=== PATIENT | female | born 1995 | race Caucasian/White ===

== ENCOUNTER 2021-05-05 07:17 | Emergency (ER) | payer BC ==
--- NOTE | 2021-05-05 07:49 | EDM.PDOC ---
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 The patient states that approximately 20 minutes prior to arrival the patient had some vaginal bleeding when she went to the restroom. She states that the toilet was full of blood which she describes as Lanre-Aid color. When she wiped she did have some clots and on the other side there was some bright red blood. She does not know how much she has bled since that time. She states that she occasionally has some pelvic pain but denies any pelvic pain this morning. She denies any dysuria or hematuria. She states that this is her first . She denies any prior history of miscarriage. She denies any fever, chills, chest pain, shortness of breath, headache, blurry vision, double vision or any other symptoms. REVIEW OF SYSTEMS: Constitutional: Denies fever, chills. Eyes: Denies eye pain Ears, Nose, Mouth, & Throat: Denies earache Cardiovascular: Denies chest pain Respiratory: Denies shortness of breath Gastrointestinal: Denies Nausea, vomiting, diarrhea, hematochezia. Genitourinary: Positive for vaginal bleeding. Denies hematuria, dysuria, pelvic pain Skin:Denies a rash MSK: Denies joint pain Neurological: Denies blurred vision, headache Psychiatric: Denies depression PAST MEDICAL HISTORY: As per history of present illness and as reviewed below otherwise noncontributory. SURGICAL HISTORY: As per history of present illness and as reviewed below otherwise noncontributory. LMP: 11 weeks ago SOCIAL HISTORY: As per history of present illness and as reviewed below otherwise noncontributory. FAMILY HISTORY: As per history of present illness and as reviewed below otherwise noncontributory. EXAMINATION OF ORGAN SYSTEMS/BODY AREAS: Constitutional: Blood pressure is 152/100, heart rate 112, respiratory rate 18 with an oxygen saturation of 99% on room air. Temperature 36.6 General: Well-appearing woman who is in no acute distress Psychiatric: Appropriate mood and affect. Eyes: No scleral icterus or conjunctival erythema ENMT: Moist mucous membranes. No pharyngeal erythema Cardiovascular: Tachycardic but regular no gallops, murmurs, or rubs. Bilateral upper extremity pulses symmetric and intact. No peripheral edema. No JVD. Respiratory: Lungs clear to auscultation bilaterally. No wheezes, rales, or rhonchi. Gastrointestinal: Soft, non-tender, non-distended. Normoactive bowel sounds Genitourinary: No suprapubic tenderness Musculoskeletal: Normal range of motion. Skin: No lesions or abrasions. Neurological: Alert, GCS 15 MEDICAL DECISION MAKING AND COURSE IN THE ED WITH INTERPRETATION/REVIEW OF DIAGNOSTIC STUDIES: This is a 26-year-old woman G1, P0 at 11 weeks gestation who comes to the emergency department with vaginal bleeding who is mildly tachycardic and hypertensive. At this time the patient does appear to be mildly anxious we will reevaluate blood pressure and heart rate after patient is in the emergency department being observed. I did perform a bedside ultrasound at this time. Bedside transabdominal OB ultrasound Bedside transabdominal OB ultrasound does not reveal any evidence of pelvic free fluid. There does appear to be a single live intrauterine gestation with heart rate present. I did discuss with patient at this time I would like to obtain laboratory analysis including CBC, quantitative hCG, type and screen and urinalysis. They were amenable to this plan. Laboratory: CBC is unremarkable. Quantitative hCG was 100,515. Urinalysis revealed hematuria with trace leukocyte esterase with 2+ urinary bacteria. This indicates asymptomatic bacteriuria. Blood type is a negative Given that the patient's blood type is a negative we did provide the patient with RhoGam. She was amenable to this plan. On reevaluation patient's blood pressure had significantly improved. At this time I did with RN outer diameter grinder tool present to perform a bimanual examination. The cervical os was closed and there was no blood on my gloved. I did discuss with her at this time strict return precautions and follow-up closely with her disk grinder. She was amenable discharge at this time and had no further questions. DISPOSITION: The patient was discharged home in stable condition. The patient will follow up with disk grinder in 3 to 5 days CONDITION: Fair PROCEDURES: Bedside transabdominal OB ultrasound FINAL IMPRESSION(S)/DIAGNOSES: 1. Acute threatened Elias Clinton M.D. 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 History: Reports: Musculoskeletal History: Reports: None Neurological History: Reports: None Psychiatric History: Reports: None Endocrine/Metabolic History: Reports: None Hematologic History: Reports: None Oncologic (Cancer) History: Reports: None Dermatologic History: Reports: None - Infectious Disease History Infectious Disease History: Reports: Chicken Pox - Past Surgical History Female Surgical History: Reports: None Endocrine Surgical History: Reports: None Neurological Surgical History: Reports: None Musculoskeletal Surgical History: Reports: None Social & Family History - Family History Family Medical History: No Pertinent Family History - Caffeine Use Caffeine Use: Reports: None - Recreational Drug Use Recreational Drug Use: No ED ROS GENERAL - Review of Systems Review Of Systems: See Below ED EXAM, GENERAL - Physical Exam Exam: See Below Course - Vital Signs Last Recorded V/S: Last Vital Signs Temp 36.8 C 05/05/21 10:35 Pulse 92 05/05/21 10:35 Resp 16 05/05/21 10:35 BP 118/82 05/05/21 10:35 Pulse Ox 92 L 05/05/21 10:35 - Orders/Labs/Meds Labs: Laboratory Tests 05/05/21 05/05/21 05/05/21 Range/Units 07:40 07:43 07:43 WBC 8.58 (4.0-11.0) K/uL RBC 5.09 (4.30-5.90) M/uL Hgb 13.7 (12.0-16.0) g/dL Hct 41.4 (36.0-46.0) % MCV 81.3 (80.0-98.0) fL MCH 26.9 L (27.0-32.0) pg MCHC 33.1 (31.0-37.0) g/dL RDW Std Deviation 41.1 (28.0-62.0) fl RDW Coeff of Sobia 14 (11.0-15.0) % Plt Count 277 (150-400) K/uL MPV 10.00 (7.40-12.00) fL Neut % (Auto) 69.9 (48.0-80.0) % Lymph % (Auto) 21.2 (16.0-40.0) % Wilkes % (Auto) 6.4 (0.0-15.0) % Eos % (Auto) 2.3 (0.0-7.0) % Baso % (Auto) 0.2 (0.0-1.5) % Neut # (Auto) 6.0 H (1.4-5.7) K/uL Lymph # (Auto) 1.8 (0.6-2.4) K/uL Wilkes # (Auto) 0.6 (0.0-0.8) K/uL Eos # (Auto) 0.2 (0.0-0.7) K/uL Baso # (Auto) 0.0 (0.0-0.1) K/uL Nucleated RBC % 0.0 /100WBC Nucleated RBCs # 0 K/uL HCG, Quant 040246.0 mIU/mL Urine Color Urine Appearance Urine pH (5.0-8.0) Ur Specific [place] (1.001-1.035) Urine Protein (NEGATIVE) mg/dL Urine Glucose (UA) (NEGATIVE) mg/dL Urine Ketones (NEGATIVE) mg/dL Urine Occult Blood (NEGATIVE) Urine Nitrite (NEGATIVE) Urine Bilirubin (NEGATIVE) Urine Urobilinogen (<2.0) EU/dL Ur Leukocyte Esterase (NEGATIVE) Urine RBC (0-2/HPF) Urine WBC (0-5/HPF) Ur Epithelial Cells (NONE-FEW) Urine Bacteria (NEGATIVE) Blood Type A NEGATIVE Antibody Screen NEGATIVE 05/05/21 Range/Units 07:49 WBC (4.0-11.0) K/uL RBC (4.30-5.90) M/uL Hgb (12.0-16.0) g/dL Hct (36.0-46.0) % MCV (80.0-98.0) fL MCH (27.0-32.0) pg MCHC (31.0-37.0) g/dL RDW Std Deviation (28.0-62.0) fl RDW Coeff of Sobia (11.0-15.0) % Plt Count (150-400) K/uL MPV (7.40-12.00) fL Neut % (Auto) (48.0-80.0) % Lymph % (Auto) (16.0-40.0) % Wilkes % (Auto) (0.0-15.0) % Eos % (Auto) (0.0-7.0) % Baso % (Auto) (0.0-1.5) % Neut # (Auto) (1.4-5.7) K/uL Lymph # (Auto) (0.6-2.4) K/uL Wilkes # (Auto) (0.0-0.8) K/uL Eos # (Auto) (0.0-0.7) K/uL Baso # (Auto) (0.0-0.1) K/uL Nucleated RBC % /100WBC Nucleated RBCs # K/uL HCG, Quant mIU/mL Urine Color YELLOW Urine Appearance SLT CLOUDY Urine pH 7.0 (5.0-8.0) Ur Specific [place] 1.015 (1.001-1.035) Urine Protein NEGATIVE (NEGATIVE) mg/dL Urine Glucose (UA) NEGATIVE (NEGATIVE) mg/dL Urine Ketones NEGATIVE (NEGATIVE) mg/dL Urine Occult Blood MODERATE H (NEGATIVE) Urine Nitrite NEGATIVE (NEGATIVE) Urine Bilirubin NEGATIVE (NEGATIVE) Urine Urobilinogen 0.2 (<2.0) EU/dL Ur Leukocyte Esterase TRACE H (NEGATIVE) Urine RBC 2-3 (0-2/HPF) Urine WBC 5-10 (0-5/HPF) Ur Epithelial Cells MODERATE (NONE-FEW) Urine Bacteria 2+ H (NEGATIVE) Blood Type Antibody Screen Meds: Medications Discontinued Medications Generic Name Dose Route Start Last Admin Trade Name Freq PRN Reason Stop Dose Admin Cephalexin 500 mg 05/05/21 09:20 05/05/21 09:31 Cephalexin 500 Mg Cap PO 05/05/21 09:21 500 mg ONETIME ONE Administration Departure - Departure Time of Disposition: :28 Disposition: Home, Self-Care 01 Condition: Fair Clinical Impression: Threatened , UTI (urinary tract infection) - Discharge Information *PRESCRIPTION DRUG MONITORING PROGRAM REVIEWED*: No *COPY OF PRESCRIPTION DRUG MONITORING REPORT IN PATIENT YANA: No Prescriptions: cephALEXin [Keflex] 500 mg PO BID #5 cap Instructions: Threatened Miscarriage, Urinary Tract Infection, Adult, [id number] Referrals: PCP,None [Primary Care Provider] - Forms: ED Department Discharge Additional Instructions: Your evaluated today on an emergent basis. At this time your bedside ultrasound did reveal heart rate and a intrauterine . Your blood levels were normal and your bleeding did decrease. Your blood type is A negative and given the bleeding we did give you RHOGAM. Your urine did show some bacteria so we started you on antibiotic. At this time your increased risk of miscarriage given the vaginal bleeding. I recommend that you keep your appointment with your disk grinder on Wednesday. If you have any worsening bleeding, pain or you are concerned you are welcome to return to the emergency department. [facility] [address] [place] [id number] [address] [id number] The patient is informed of any results of their evaluation and diagnostic workup and all questions are answered. They are given discharge instructions and return precautions. The patient is stable for discharge. The patient states they understand and agree with the plan and that they will return if their symptoms get worse or if they have any new concerns. The following information is given to patients seen in the emergency department who are being discharged to home. This information is to outline your options for follow-up care. We provide all patients seen in our emergency department with a follow-up referral. The need for follow-up, as well as the timing and circumstances, are variable depending upon the specifics of your emergency department visit. If you don't have a primary care physician on staff, we will provide you with a referral. We always advise you to contact your personal physician following an emergency department visit to inform them of the circumstance of the visit and for follow-up with them and/or the need for any referrals to a consulting specialist. The emergency department will also refer you to a specialist when appropriate. This referral assures that you have the opportunity for follow-up care with a specialist. All of these measure are taken in an effort to provide you with optimal care, which includes your follow-up. Under all circumstances we always encourage you to contact your private physician who remains a resource for coordinating your care. When calling for follow-up care, please make the office aware that this follow-up is from your recent emergency room visit. If for any reason you are refused follow-up, please contact the [facility] Emergency Department at and asked to speak to the emergency department charge nurse. Sepsis Event Note (ED) - Evaluation Sepsis Screening Result: No Definite Risk
[2021-05-05] MEDS ORDERED: Cephalexin 500 MG Cap PO ONE (09:20)
== END 2021-05-05 10:38 | disposition home or self-care (01) ==
LOC: MW.ED 07:17
DX: O20.0 Threatened abortion (principal); O23.41 Unspecified infection of urinary tract in pregnancy, first trimester; N39.0 Urinary tract infection, site not specified; Z3A.11 11 weeks gestation of pregnancy
CPT/HCPCS: 36415; 81001; 84702; 85025; 86850; 86900; 86901; 87086; 90384; 99284; A9270; J2790

== ENCOUNTER 2021-11-26 14:21 | Inpatient (IN) | payer OTHER ==
[2021-11-26] MEDS ORDERED: Methylergonovine 0.2 MG/1 ML Amp IM PRN (14:35)
[2021-11-26] MEDS ORDERED: Butorphanol 1 MG/ML SDV IVPUSH PRN (14:35)
[2021-11-26] MEDS ORDERED: Sodium Chloride 0.9% 2.5 ML Syringe FLUSH PRN (14:35)
[2021-11-26] MEDS ORDERED: Sodium Chloride 0.9% 20 ML SDV IV PRN (14:35)
[2021-11-26] MEDS ORDERED: Misoprostol 200 MCG Tab PO PRN (14:35)
[2021-11-26] MEDS ORDERED: Ondansetron 4 MG/2 ML SDV IVPUSH PRN (14:35)
[2021-11-26] MEDS ORDERED: Sodium Chloride 0.9% 10 ML Syringe FLUSH PRN (14:35)
[2021-11-26] MEDS ORDERED: Tranexamic Acid 1,000 MG in Sodium Chloride 0.9% 100 ML IV PRN (14:35)
[2021-11-26] MEDS ORDERED: Carboprost Tromethamine 250 MCG/1 ML Amp IM PRN (14:35)
[2021-11-26] MEDS ORDERED: Lidocaine 1% 50 ML MDV INJECT PRN (14:35)
[2021-11-26] MEDS ORDERED: Terbutaline 1 MG/ML SDV SUBCUT PRN (14:35)
[2021-11-26] MEDS ORDERED: Water For Irrigation,Sterile 1,000 ML Container IRR PRN (14:35)
[2021-11-26] MEDS ORDERED: Oxytocin/0.9 % Sodium Chloride 30 UNIT/500 ML BAG IV SCH ×2 (14:45)
[2021-11-26] MEDS ORDERED: Misoprostol 25 MCG (1/4 of 100 MCG) Tab PO PRN ×2 (15:00→19:00)
[2021-11-26] MEDS ORDERED: Misoprostol 25 MCG (1/4 of 100 MCG) Tab VAG PRN ×2 (15:00→19:00)
[2021-11-26] MEDS: Lactated Ringers 1,000 ML IV SCH (15:52)
[2021-11-26] MEDS ORDERED: ePHEDrine 50 MG/ML SDV IVPUSH PRN ×2 (17:22)
[2021-11-26] MEDS ORDERED: Ropivacaine HCl/PF 400 MG in Premix Bag 1 BAG EPIDUR SCH (17:30)
[2021-11-26] MEDS ORDERED: Phenylephrine HCl In 0.9% NaCl 1 MG/10 ML Vial IVPUSH SCH (17:30)
[2021-11-27] MEDS ORDERED: ePHEDrine 50 MG/ML SDV IVPUSH PRN ×2 (06:36)
[2021-11-27] MEDS ORDERED: Phenylephrine HCl In 0.9% NaCl 1 MG/10 ML Vial IVPUSH SCH (06:45)
[2021-11-27] MEDS ORDERED: Ropivacaine HCl/PF 400 MG in Premix Bag 1 BAG EPIDUR SCH (06:45)
[2021-11-27] MEDS: Lactated Ringers 1,000 ML IV SCH ×2 (08:05→16:18)
[2021-11-27] MEDS ORDERED: Acetaminophen 500 MG Tab PO ONE (16:05)
[2021-11-27] MEDS ORDERED: Bisacodyl 10 MG Supp RECTAL PRN (21:20)
[2021-11-27] MEDS ORDERED: Benzocaine/Menthol 20%-0.5% Spray 78 GM Cannister TOP PRN (21:20)
[2021-11-27] MEDS ORDERED: Lanolin 100% Cream 7 GM Tube TOP PRN (21:20)
[2021-11-27] MEDS ORDERED: Witch Hazel Medicated Pads 40/Jar TOP PRN (21:20)
[2021-11-27] MEDS ORDERED: Docusate Sodium 100 MG Cap PO PRN (21:20)
[2021-11-27] MEDS ORDERED: Ibuprofen 400 MG Tab PO PRN (21:20)
[2021-11-27] MEDS ORDERED: Acetaminophen 500 MG Tab PO PRN ×2 (21:20)
[2021-11-27] MEDS ORDERED: oxyCODONE 5 MG Tab PO PRN (21:20)
[2021-11-27] MEDS ORDERED: Ibuprofen 800 MG Tab PO PRN (21:20)
== END 2021-11-29 22:15 | disposition home or self-care (01) | DRG 807 ==
LOC: MW.OBCHECK 14:21 → MW.OB 14:36 → OBSVTOIN 11-27 21:08 → MW.OB 11-28 00:19
PROVIDERS: ADMIT Obstetrics & Gynecology; ATTEND Obstetrics & Gynecology
PROC: 10D07Z6 Extraction of Products of Conception, Vacuum, Via Natural or Artificial Opening (ICD-10-PCS; principal; 2021-11-27)
PROC: 10907ZC Drainage of Amniotic Fluid, Therapeutic from Products of Conception, Via Natural or Artificial Opening (ICD-10-PCS; 2021-11-27)
PROC: 3E0P7VZ Introduction of Hormone into Female Reproductive, Via Natural or Artificial Opening (ICD-10-PCS; 2021-11-27)
PROC: 3E0R3BZ Introduction of Anesthetic Agent into Spinal Canal, Percutaneous Approach (ICD-10-PCS; 2021-11-27)
PROC: 00HU33Z Insertion of Infusion Device into Spinal Canal, Percutaneous Approach (ICD-10-PCS; 2021-11-27)
DX: O80 Encounter for full-term uncomplicated delivery (principal); Z37.0 Single live birth; Z3A.39 39 weeks gestation of pregnancy; Z20.822 Contact with and (suspected) exposure to COVID-19
CPT/HCPCS: 36415; 51702; 59025; 59409; 85014; 85018; 85027; 86592; 86850; 86900; 86901; A9270-GY; J2590; J7120; U0002